=== PATIENT | female | born 1950 | race Native Hawaiian/Other Pacific Islander ===

== ENCOUNTER 2019-11-17 11:19 | Outpatient (CLI) | payer MEDICARE, OTHER, SELFPAY ==
[2019-11-17 12:11] LABS: Blood Urea Nitrogen 14 mg/dL (7-17); Calcium 10.2 mg/dL (8.4-10.2); Carbon Dioxide 30 mmol/L (22-30); Chloride 102 mmol/L (98-107); Estimated Glomerular Filt Rate > 60; Glucose 117 mg/dL (65-105); Potassium 3.8 mmol/L (3.4-5.0); Sodium 139 mmol/L (137-145)
[2019-11-17 12:23] LABS: Parathyroid Intact 21.2 pg/mL (7.5-53.5)
[2019-11-17 12:57] LABS: Vitamin D 25 Hydroxy 66.6 ng/mL
== END 2019-11-17 11:20 | disposition home or self-care (01) ==
PROVIDERS: PCP Internal Medicine Endocrinology, Diabetes & Metabolism; Visit Provider Internal Medicine Endocrinology, Diabetes & Metabolism
DX: M81.0 Age-related osteoporosis without current pathological fracture (principal)
CPT/HCPCS: 36415; 80048; 82306; 83970